=== PATIENT | male | born 1970 | race Caucasian/White ===

== ENCOUNTER 2018-01-25 17:42 | Emergency (ER) | payer BC, OTHER ==
--- NOTE | 2018-01-25 18:15 | Emergency Department Record ---
History of Present Illness - General Chief complaint: Abscess Stated complaint: UPPER BACK CYST Time Seen by Provider: 01/25/18 18:07 Source: Patient Mode of Arrival: Ambulatory Limitations: No limitations - History of Present Illness Initial comments: 47 yo male presents to ED for evaluation of a raised, painful lesion to the right thoracic region that has been present for "years". Patient denies redness , drainage, fevers, chills, or recent illness. Patient denies specific injury to the area, and denies health problems at his baseline. Patient did call his PCP but cannot be seen for several weeks. MD complaint: Lesion Onset/Timin -: Year(s) Location: Back Severity: Moderate Severity scale (1-10): 6 Quality: Aching Consistency: Constant Improves with: None Worsens with: Movement Context: None Associated symptoms: Denies other symptoms Treatments Prior to Arrival: None - Related Data Home Medications Medication Instructions Recorded Confirmed Last Taken Atorvastatin Calcium [Lipitor] 20 mg PO QHS 01/25/18 01/25/18 01/24/18 Bupropion HCl [Wellbutrin Sr] 100 mg PO DAILY 01/25/18 01/25/18 01/25/18 Esomeprazole Magnesium [Nexium] 20 mg PO DAILY 01/25/18 01/25/18 01/25/18 Fluoxetine HCl [Prozac] 40 mg PO DAILY 01/25/18 01/25/18 01/25/18 Lamotrigine [Lamictal] 25 mg PO QHS 01/25/18 01/25/18 01/24/18 Previous Rx's Medication Instructions Recorded Naproxen [Naprosyn] 500 mg PO Q12H #30 tablet 01/25/18 Allergies Allergy/AdvReac Type Severity Reaction Status Date / Time No Known Drug Allergies Allergy Verified 01/25/18 17:55 Travel Screening - Travel/Exposure Within Last 30 Days Have you traveled within the last 30 days?: No - Travel/Exposure Within Last Year Have you traveled outside the [place] in the last year?: No - Additonal Travel Details Have you been exposed to anyone with a communicable illness?: No - Travel Symptoms Symptom Screening: None Review of Systems Constitutional: Denies: Chills, Fever, Malaise, Night sweats Eyes: Denies: Eye discharge, Eye pain ENT: Denies: Congestion, Ear pain, Epistaxis Respiratory: Denies: Cough, Dyspnea Cardiovascular: Denies: Chest pain, Dyspnea on exertion Endocrine: Denies: Fatigue, Heat or cold intolerance Gastrointestinal: Denies: Abdominal pain, Nausea, Vomiting Musculoskeletal: Reports: Back pain. Denies: Arthralgia, Gout, Joint swelling Skin: Denies: Bruising, Change in color Neurological: Denies: Abnormal gait, Confusion, Headache Psychiatric: Denies: Anxiety Hematological/Lymphatic: Denies: Anemia, Blood Clots Past Medical History - SOCIAL HISTORY Smoking Status: Light tobacco smoker (<10/day) Alcohol Use: None Drug Use: None - RESPIRATORY Hx Respiratory Disorders: No - CARDIOVASCULAR Hx Cardio Disorders: No - NEURO Hx Neuro Disorders: No - GI Hx GI Disorders: Yes Comment:: BArrets esophagus - Hx Genitourinary Disorders: No - ENDOCRINE Hx Endocrine Disorders: No - MUSCULOSKELETAL Hx Musculoskeletal Disorders: No - PSYCH Hx Psych Problems: Yes Hx Depression: Yes - HEMATOLOGY/ONCOLOGY Hx Hematology/Oncology Disorders: No Family Medical History Any Significant Family History?: No Physical Exam - General General Appearance: Alert, Oriented x3, Cooperative, Mild distress Limitations: No limitations - Head Head exam: Atraumatic, Normocephalic, Normal inspection Head exam detail: negative: Abrasion, Contusion, King's sign, General tenderness, Hematoma, Laceration - Eye Eye exam: Normal appearance. negative: Conjunctival injection, Periorbital swelling, Periorbital tenderness, Scleral icterus - ENT Ear exam: negative: Auricular hematoma, Auricular trauma Nasal Exam: negative: Active bleeding, Discharge, Dried blood, Foreign body Mouth exam: negative: Drooling, Laceration, Muffled voice, Tongue elevation - Neck Neck exam: Normal inspection. negative: Meningismus, Tenderness - Respiratory Respiratory exam: Normal lung sounds bilaterally. negative: Respiratory distress, Rhonchi, Stridor, Wheezes - Cardiovascular Cardiovascular Exam: Regular rate, Normal rhythm, Normal heart sounds - GI/Abdominal GI/Abdominal exam: Soft. negative: Rebound, Rigid, Tenderness - Rectal Rectal exam: Deferred - exam: Deferred - Extremities Extremities exam: Normal inspection. negative: Pedal edema, Tenderness - Back Back exam: Reports: Paraspinal tenderness, Other (2.5 cm lesion to the right of the thoracic midline is present, no erythema, induration, or fluctuance are present. Symptoms appear c/w lipoma or soft-tissue lesion. Patient also has TTP to the paravertebral muscles of this region bilaterally more c/w myofascial strain.). Denies: CVA tenderness (R), CVA tenderness (L) - Neurological Neurological exam: Alert, Normal gait, Oriented X3 - Psychiatric Psychiatric exam: Normal affect, Normal mood - Skin Skin exam: Normal color. negative: Abrasion Type of lesion: negative: abrasion Course Vital Signs 01/25/18 17:45 Temperature 97.8 F Pulse Rate 89 Respiratory 16 Rate Blood Pressure 133/77 Pulse Ox 99 - Reevaluation(s) Reevaluation #1: 01/25/18 18:19 Patient was seen and examined. No evidence for abscess is present, examination is c/w lipoma or other soft- tissue lesion to the right of the thoracic region. Patient also appears to have bilateral TTP to the paravertebral muscles bilaterally. No trauma history is present, and there are no red flags for spinal cord compression syndrome on examination. Will refer the patient for Dr. Barrientos to evaluate his soft-tissue lesion, and prescribe Naprosyn for likely thoracic myofascial strain symptoms with instructions for follow-up in 1 week as directed. Disposition Disposition: Discharge Clinical Impression: Lipoma of back Thoracic myofascial strain Qualifiers: Encounter type: initial encounter Qualified Code(s): S29.019A - Strain of muscle and tendon of unspecified wall of thorax, initial encounter Disposition: Home, Self-Care Condition: (2) Stable Instructions: Lipoma (ED) Additional Instructions: Return to ED if your symptoms worsen or if you have any concerns. Naprosyn as directed. Call Dr. Barrientos for evaluation of the soft-tissue lesion to the thoracic region in 3-5 days as directed. Follow-up with your family doctor in 1 week as directed for further evaluation of your back strain symptoms. Prescriptions: Naproxen [Naprosyn] 500 mg PO Q12H #30 tablet Referrals: Jose Daniel Barrientos [DOCTOR OF OSTEOPATH] - Forms: Patient Portal Access Time of Disposition: 18:14 Quality - Quality Measures Quality Measures: N/A - Blood Pressure Screening Does Patient Have Any of the Following: No Blood Pressure Classification: Pre-Hypertensive BP Reading Systolic Measurement: 133 Diastolic Measurement: 77 Screening for High Blood Pressure: < Pre-Hypertensive BP, F/U Documented > [ [id number]] Pre-Hypertensive Follow-up Interventions: Referral to alternative/primary care provider.
== END 2018-01-25 18:22 | disposition home or self-care (01) ==
LOC: ER 17:42
DX: S29.019A Strain of muscle and tendon of unspecified wall of thorax, initial encounter (principal); D17.1 Benign lipomatous neoplasm of skin and subcutaneous tissue of trunk; X58.XXXA Exposure to other specified factors, initial encounter; F17.210 Nicotine dependence, cigarettes, uncomplicated
CPT/HCPCS: 99283